=== PATIENT | male | born 2000 | race Two or more races ===

== ENCOUNTER 2021-07-09 13:47 | Emergency (ER) | payer OTHER ==
[2021-07-09 17:45] LABS: #Monocytes 1.4 10x3/uL (0.0-1.1); #Neutrophils 13.9 10x3/uL (1.5-8.4); %Basophils 0.1 % (0.0-2.0); %Lymphocytes 5.3 % (18.0-47.0); %Monocytes 8.4 % (0.0-10.0); %Neutrophils 85.9 % (40.0-75.0); Hemoglobin 15.2 g/dL (13.5-17.5); Mean Corpuscular HGB CONC 32.7 g/dL (32.0-36.0); Mean Corpuscular Hemoglobin 28.8 pg (27.0-33.0); Mean Corpuscular Volume 88.1 fl (81.2-95.1); Mean Platelet Volume 9.7 fl (7.4-10.4); Platelet Count 239 10x3/uL (150-450); RBC Distribution Width 12.4 % (11.5-14.5); Red Blood Cell (RBC) Count 5.28 10x6/uL (4.32-5.72); White Blood Cell (WBC) Count 16.1 10x3/uL (3.5-10.5)
[2021-07-09] MEDS ORDERED: Acetaminophen 500 MG TAB ONE (17:48)
[2021-07-09] MEDS ORDERED: Ketorolac Tromethamine 30 MG/ML VIAL ONE (17:48)
[2021-07-09] MEDS ORDERED: Ondansetron PF 4 MG/2 ML Vial ONE (17:48)
[2021-07-09 18:07] LABS: ALT (SGPT) 20 U/L (8-55); AST (SGOT) 25 U/L (10-45); Albumin 4.9 g/dL (3.5-5.0); Alkaline Phosphatase 105 U/L (50-130); Anion Gap 17 mmol/L (10-20); BUN (Urea Nitrogen) 12 mg/dL (8.4-21.0); Bilirubin, Total 0.8 mg/dL (0.2-1.2); Calc. Creatinine Clearance 0 mL/min (70-130); Calcium 9.4 mg/dL (7.8-10.44); Carbon Dioxide 24 mmol/L (22-29); Chloride 102 mmol/L (98-107); Globulin 3.2 g/dL (2.4-3.5); Glucose 109 mg/dL (70-105); Potassium 4.5 mmol/L (3.5-5.1); Protein, Total 8.1 g/dL (6.0-8.3); Sodium 138 mmol/L (136-145)
[2021-07-10 09:42] LABS: SARS-CoV-2 PCR by NAA DETECTED (NotDetected)
== END 2021-07-09 19:46 | disposition home or self-care (01) ==
LOC: CSHERS 13:47
DX: U07.1 COVID-19 (principal)
CPT/HCPCS: 71045; 80053; 85025; 87081; 87430; 96374; 96375; J1885; J2405; U0003; U0005

== ENCOUNTER 2021-12-03 10:41 | Emergency (ER) | payer OTHER | END 2021-12-03 11:27 | disposition home or self-care (01) | LOC: CSHERS 10:41 | DX: M25.572 Pain in left ankle and joints of left foot (principal) | CPT/HCPCS: 99283 ==